=== PATIENT | male | born 1985 | race Caucasian/White ===

== ENCOUNTER 2025-08-25 16:56 | Emergency (ER) | payer SELFPAY ==
--- OUTSIDE RECORDS SUMMARY | 2001-10-10 01:00 | XMS_ITS | Encounter Summary ---
Author Organization [facility] Address [address] [place] [id number] Care Team Providers Care Research Assoc Name Role Phone Unavailable Primary Care Provider Unavailabl e Encounter Details Date Type Department Care Team (Late st Contact Info) Description 10/10/2001 Hospital Encounter [facility] Department of Radiology [address] [place] [id number] Social History Tobacco Use Types Packs/Day Years Used Date Smoking Tobacco: Never Assessed Sex and Gender Information Value Date Recorded Sex Assigned at Not on file Legal Sex Male 5:12 AM EST Gender Identity Not on file Sexual Orientation Not on file documented as of this encounter Plan of Treatment Not on file documented as of this encounter Visit Diagnoses Not on filedocumented in this encounter
[2025-08-25 17:02] VITALS: BP 196/125; PULSE 105; RESP 20; TEMP 36.8; O2SAT 100; BMI 39.2
--- NOTE | 2025-08-25 17:19 | XR_ITS ---
PROCEDURE INFORMATION: Exam: XR Left Wrist Exam date and time: 08/25/2025 6:04 PM Age: 40 years old Clinical indication: Swelling; Wrist; Left; Additional info: Pain TECHNIQUE: Imaging protocol: Radiologic exam of the left wrist. Views: 3 or more views. COMPARISON: CR XR WRIST LT MIN 3V 08/25/2025 6:04 PM FINDINGS: Bones/joints: No acute fracture or malalignment. Soft tissues: Hand and wrist soft tissue swelling. IMPRESSION: Hand and wrist soft tissue swelling. No acute osseous findings.
--- OUTSIDE RECORDS SUMMARY | 2025-08-25 17:24 | XMS_ITS | Clinical Summary ---
Author Organization [facility] Address [facility] [place] [address] Care Team Providers Care Television News Video Editor Name Role Phone Unavailable Primary Care Provider Unavailabl e Source Comments [facility] is fully rolled out with thefollowing exceptions:General Clinical Research [facility] Social History Tobacco Use Types Packs/Day Years Used Date Smoking Tobacco: Never Assessed Sex and Gender Information Value Date Recorded Sex Assigned at Not on file Legal Sex Male 5:12 AM EST Gender Identity Not on file Sexual Orientation Not on file Plan of Treatment Health Maintenance Due Date Last Done Comments MMR IMMUNIZATION (1 of 1 - S tandard series) 1987 DTAP/Tdap/Td IMMUNIZATION (1 - Tdap) 1993 VARICELLA IMMUNIZATION (1 of 2 - 13+ 2-dose series) 1999 HEPATITIS B IMMUNIZATION (1 of 3 - 19+ 3-dose series) 2005 HPV IMMUNIZATION (1 - 3-dose SCDM series) 2013 AMB SEASONAL FLU VACCINE (#1) 08/02/2025 COVID-19 Vaccine (2023-2 5 season) 2025 HIB IMMUNIZATION Aged Out No longer e ligible based on patient's age to complete this topic IPV IMMUNIZATION Aged Out No longer e ligible based on patient's age to complete this topic MCV4 IMMUNIZATION Aged Out No longer eligible based on patient's age to complete this topic MENINGOCOCCAL B VACCINE Aged Out No l onger eligible based on patient's age to complete this topic PNEUMOCOCCAL IMMUNIZATION Aged Out No longer eligible based on patient's age to complete this topic Respiratory Syncytial Virus (RSV) <20mo Aged Out No longer eligible b ased on patient's age to complete this topic
--- OUTSIDE RECORDS SUMMARY | 2025-08-25 17:24 | XMS_ITS | Clinical Summary ---
Author Organization [facility] Address [address] [place] [address] Phone Care Team Providers Care Retail Selling Specialist Name Role Phone Unavailable Primary Care Provider Unavailabl e Allergies Active Allergy Reactions Criticality Noted Date Comments Banana Nausea And Vomiting 10/24/2018 Hymenoptera Allergenic Extract Swelling 07/06 Latex Rash 02/03/2019 Medications * This document contains information received from the source organization and may not represent a complete record from that organization. predniSONE (DELTASONE) 10 mg Oral TabletIndicatio ns:Achilles tendinitis of right lower extremity 10mg tablet: Take 3 tablets by mouth for 3 days, then 2 tablets by mouth for 3 days, then 1 tablet by mouth for 4 days. 19 Tab 06/15/2021 Active Active Problems Problem Noted Date Diagnosed Date Major depressive disorder, s suzie episode, severe without psychosis 08/17/2019 Overview (10/26/2020): Situational Stable off meds. Obesity, Class II, BMI 35-39.9 02/03/2019 Overview (02/03/2019): Diet/exercise. Resolved Problems Problem Noted Date Diagnosed Date Resolved Date Major depressive disorder, r ecurrent severe without psychotic features 08/17/2019 08/17/2019 Suicide attempt 08/17/2019 10/26/2020 Mood disorder 08/12/2019 08/17/2019 Overview (08/12/2019): Labile mood. Depression. Contracts for safety. Counseling for coping mechanisms. wellbutrin as prescribed with followup 4-6 weeks. Surgical History Surgery Date Site/Laterality Comments CHOLECYSTECTOMY Medical History Medical History Date Comments Depression Family History Medical History Relation Name Comments Cancer Father Depression Father Diabetes Father High Blood Pressure Father High Cholesterol Father Relation Name Status Comments Brother Alive Father Alive Maternal Grandmother Alive Mother Alive Paternal Grandfather Paternal Grandmother Social History Tobacco Use Types Packs/Day Years Used Date Smoking Tobacco: Never Smokeless Tobacco: Never Alcohol Use Standard Drinks/Week Comments Yes 0 (1 standard drink = 0.6 oz pur e alcohol) rare PHQ-2 Answer Date Recorded PHQ-2 Total Score 0 10/26/2020 Sexually Active Control Partners Comments Yes Sex and Gender Information Value Date Recorded Sex Assigned at Not on file Legal Sex Male 12:16 PM EDT Gender Identity Not on file Sexual Orientation Not on file Obstetrics History Last Filed Vital Signs Vital Sign Reading Time Taken Comments Blood Pressure 120/68 06/15/2021 10:38 AM EDT Pulse 80 06/15/2021 10:38 AM EDT Temperature 36.4 C (97.5 F) 06/15/2021 10:38 AM EDT Respiratory Rate 16 06/15/2021 10:38 AM EDT Oxygen Saturation 98% 06/15/2021 10:38 AM EDT Inhaled Oxygen Concentration - - Weight 114.3 kg (252 lb) 06/15/2021 10:38 AM EDT Height 175.3 cm (5' 9 ) 06/15/2021 10:38 AM EDT Body Mass Index 37.21 06/15/2021 10:38 AM EDT Plan of Treatment Health Maintenance Due Date Last Done Comments Annual Wellness Exam 1989 DTaP/TDaP/Td (1 - Tdap) 2005 Hepatitis B Vaccine (1 of 3 - 19+ 3-dose series) 2005 COVID-19 Vaccine (2023-2 5 season) 2025 Influenza Vaccine (#1) 2025 Meningococcal B Vaccine Aged Out No l onger eligible based on patient's age to complete this topic Pneumococcal Vaccine 0-49 Aged Out No longer eligible based on patient's age to complete this topic Goals Goal Patient Goal Type Associated Problems Recent Progress Patient-Stated? Author Maintain a healthy diet, exercise regularly and maintain an ideal body weight General No Jaclyn Bond, RN Insurance [employer] [place] [id number] [employer] [address] [facility] [place] [address] MDR
--- NOTE | 2025-08-25 17:29 | ED_ITS ---
<Statement entered by Jeanna Lopez DO - 08/26/25 16:33> I was consulted by the JOSE L, and we discussed the complexity of problems being addressed. I approve the treatment and management plan for this patient's care in the emergency department, thus performing a substantial portion of the medical decision making. Jeanna Lopez DO Discharge Plan Disposition Patient Disposition: Home, Self-Care Referrals Follow up/Referrals: Provider,Referral, MD [Primary Care Provider, Medical] - See instructions Activity Restrictions/Add. Instructions Additional Instructions/Restrictions: Use ice, León wrap, elevate and take ibuprofen for pain and swelling. If wrist gets worse rather than better please contact your primary care physician for further imaging and management. Clinical Impressions Clinical Impression: Sprain and strain of wrist Instructions Patient Instructions: Sprain, DI for Wrist Strain Print Language Print Language: Arabic Discharge ED Provider: Jeanna Lopez General Adult HPI General Chief complaint: Extremity Injury, Upper Stated complaint: swollen and painful left hand Time Seen by Provider: 08/25/25 17:07 Mode of Arrival: Ambulatory Source of Information: Patient Description of Symptoms (Recalled from ER Triage Doc. by RN): patient presents to the ED with cheif complaint of left wrist pain. patient stated he woke up one morning a few days ago and noticed it was hurting, and today it was bad enough that he called off work today. currently rates it 4/10 when not moving it. wrist appears swollen History of Present Illness HPI narrative: 40-year-old male presents to the ED today for complaint of left wrist pain. Patient denies any trauma. He thinks he just turned over in bed and hurt his wrist. It is swollen. [facility] Disclaimer: The information contained in this section may have been updated after the patient was seen, as this information can be updated by other users. Social History Smoking Status: Never smoker alcohol intake: former current occupational status: other Travel in the last 8 weeks?: None ROS Obtained: Yes Systems reviewed as appropriate & no additional complaints except as documented Constitutional Constitutional: Reports as per HPI Physical Exam General General appearance: alert and in no apparent distress Head Head exam: normocephalic Eye Eye exam: Present PERRL and EOMI ENT ENT exam: Present normal oropharynx and mucous membranes moist Neck Neck exam: Present full ROM and trachea midline Respiratory Respiratory exam: Present normal lung sounds bilaterally Cardiovascular Cardiovascular exam: Present regular rate and normal rhythm Extremities Exam Extremities exam: Present tenderness, normal capillary refill and edema Neurological Exam Neurological exam: Present alert and oriented X3 Skin Skin exam: Present warm, dry and intact Medical Decision Making Medical Records Screening: Per USPSTF and CDC recommendations, given the prevalence of disease in our region, it is our hospital?s policy to screen for HIV and viral Hepatitis for all patients aged 18 and over and those with ongoing risk factors. Clay Inquiry Pt receiving controlled substance: No Clay was queried for this patient: No Vital Signs: 08/25/25 17:02 08/25/25 19:05 Temperature 98.2 F 98.2 F Temperature Source Temporal Artery Scan Pulse Rate 87 Pulse Rate [Right Radial] 105 H Respiratory Rate 20 18 Blood Pressure 149/101 H Blood Pressure [Right Arm] 196/125 H Blood Pressure Mean [Right Arm] 148 Blood Pressure Source [Right Arm] Automatic Cuff Blood Pressure Position [Right Arm] Sitting 02 Sat by Pulse Oximetry 100 98 Oxygen Delivery Method Room Air Room Air Orders (Tests/Meds): ORDERS Category Date Time Status Wrist XR left minimum 3 views [XR wrist LT min 3V] Stat Exams 08/25/25 17:19 Completed Wrist XR left minimum 3 views [XR wrist LT min 3V] Stat Exams 08/25/25 18:28 Completed Medical Decision Narrative: patient is a 40-year-old male presenting to the emergency department for evaluation of left wrist pain. Patient is hemodynamically stable and nontoxic- appearing upon arrival, afebrile. Differential diagnosis includes wrist fracture versus sprain or strain. Workup will be conducted with specific imaging. X-rays were negative for acute fracture. Patient will be put in a León wrap and sent home for follow-up with PCP Critical Care Critical Care Time Critical Care Time: No
--- NOTE | 2025-08-25 18:28 | XR_ITS ---
PROCEDURE INFORMATION: Exam: XR Left Wrist Exam date and time: 08/25/2025 6:27 PM Age: 40 years old Clinical indication: Swelling; Wrist; Left; Additional info: Wrist swelling TECHNIQUE: Imaging protocol: Radiologic exam of the left wrist. Views: 3 or more views. COMPARISON: CR Wrist L 08/25/2025 6:04 PM FINDINGS: Bones/joints: No acute fracture or malalignment. Soft tissues: Distal forearm and hand/wrist soft tissue swelling. IMPRESSION: Distal forearm and hand/wrist soft tissue swelling. No acute osseous findings.
[2025-08-25 19:05] VITALS: BP 149/101; PULSE 87; RESP 18; TEMP 36.8; O2SAT 98
[2025-08-25 19:20] VITALS: BP 146/95; PULSE 94; RESP 16; TEMP 36.8; O2SAT 100
== END 2025-08-25 19:20 | disposition home or self-care (01) ==
PROVIDERS: Emergency Provider Student in an Organized Health Care Education/Training Program
DX: S63.502A Unspecified sprain of left wrist, initial encounter (principal); S66.912A Strain of unspecified muscle, fascia and tendon at wrist and hand level, left hand, initial encounter; X58.XXXA Exposure to other specified factors, initial encounter
CPT/HCPCS: 73110; 99283